=== PATIENT | male | born 1990 ===

== ENCOUNTER 2024-01-24 15:19 | Emergency (ER) | payer OTHER, MEDICAID, SELFPAY ==
[2024-01-24] VITALS (9 sets, daily range): BP systolic 120–172; BP diastolic 76–99; PULSE 65–84; RESP 16–18; TEMP 37.2; O2SAT 93–98; BMI 33.9
--- NOTE | 2024-01-24 15:57 | PC.NURSE ---
Pt reports some food, like chicken, or a bone got stuck 2 nights ago. Bilateral LS throughout all anterior sanders are clear. Pt denies difficultly breathing or SOB. He reports pain only when swallowing in his mid chest that radiates to his back. He is able to swallow his own secretions and maintain his own airway.
--- NOTE | 2024-01-24 18:03 | DI.RAD.S_ITS ---
PROCEDURE: XR SOFT TISSUE NECK INDICATIONS: Neck pain after swallowing TECHNIQUE: 2 views of the neck were acquired. COMPARISON: None. FINDINGS: Airway: The airway appears patent. Soft tissues: Prevertebral soft tissues are normal in thickness. The epiglottis and aryepiglottic folds appear normal. No soft tissue gas. Bones: No suspicious bony lesions. Visualized cervical spine is normally aligned. IMPRESSION: No acute abnormality. Dictated by: Jason Bingham M.D. on 01/24/2024 at 18:52 Approved by: Jason Bingham M.D. on 01/24/2024 at 18:52
--- NOTE | 2024-01-24 18:03 | DI.RAD.S_ITS ---
PROCEDURE: XR CHEST 1V INDICATIONS: Chest pain after swallowing TECHNIQUE: One view of the chest was acquired. COMPARISON: None. FINDINGS: Surgical changes and devices: None. Lungs and pleura: Lungs are clear. No pleural effusions or pneumothorax. Mediastinum: Mediastinal contours appear normal. Heart size is normal. Bones and chest wall: No suspicious bony lesions. Overlying soft tissues appear unremarkable. IMPRESSION: No acute cardiopulmonary abnormality is seen. Dictated by: Jason Bingham M.D. on 01/24/2024 at 18:52 Approved by: Jason Bingham M.D. on 01/24/2024 at 18:52
[2024-01-24] MEDS: MAG HYDROX/ALUMINUM/SIMETH SUS 20 ML, LIDOCAINE VISCOUS 2% 15 ML PO (18:09)
--- NOTE | 2024-01-24 19:01 | ED.SKABFB ---
HPI - Skin/Abscess/Foreign Bdy General Chief complaint: Skin/Abscess/Foreign Body Stated complaint: WIC; Diff Swallowing, Something in my chest Time Seen by Provider: 01/24/24 17:57 Source: patient Mode of arrival: Ambulatory Limitations: no limitations History of Present Illness HPI narrative: Patient is a 33-year-old otherwise healthy male who is here for evaluation of what he states his difficulty swallowing and potentially something stuck in his chest. He was eating a sandwich and some chips when he felt like something got stuck in his throat. States that it is painful when he swallows. No problems breathing. He was never had anything like this happened in the past. He now states the pain is now further down in his chest. No vomiting. No history of reflux disease. Related Data Allergies Allergy/AdvReac Type Severity Reaction Status Date / Time No Known Drug Allergies Allergy Verified 01/24/24 15:30 Review of Systems Review of Systems Narrative: See HPI Patient History Social History Smoking Status: Current every day smoker Smoking Status: Current every day smoker tobacco type: cigarettes alcohol intake frequency: a few times a month Alcohol type: beer and hard liquor Substance Use Type: marijuana Exam Initial Vital Signs Initial Vital Signs: Vital Signs Temperature 98.9 F 01/24/24 15:22 Pulse Rate 79 01/24/24 15:22 Respiratory Rate 16 01/24/24 15:22 Blood Pressure 137/86 01/24/24 15:22 Pulse Oximetry 98 01/24/24 15:22 Oxygen Delivery Method Room Air 01/24/24 15:22 [place] Head: normal to inspection and normocephalic Resp Effort & Inspection: normal respiratory effort Auscultation: clear to auscultation bilaterally Cardio Rate: regular rate Skin General: no rashes or lesions noted Neuro General: patient alert, patient awake, patient oriented x3 and moves all extremities Course Orders Ordered: ED Orders 01/24/24 18:03 XR chest 1V Stat XR soft tissue neck Stat Discontinued Medications Al Hydrox/Mg Hydrox/Simethicone 20 ml/ Lidocaine HCl 15 ml 0 ml PO NOW ONE Stop: 01/24/24 18:04 Last Admin: 01/24/24 18:09 Dose: 35 ml Documented By: SB Vital Signs Vital signs: Vital Signs - 8 hr 01/24/24 16:00 01/24/24 16:01 01/24/24 16:01 Pulse Rate 80 84 Respiratory Rate Blood Pressure 172/99 H Pulse Oximetry 93 93 Oxygen Delivery Method 01/24/24 16:30 01/24/24 16:30 01/24/24 17:00 Pulse Rate 72 72 Respiratory Rate Blood Pressure 124/76 Pulse Oximetry 93 95 Oxygen Delivery Method Room Air 01/24/24 17:00 01/24/24 17:30 01/24/24 17:30 Pulse Rate 69 Respiratory Rate Blood Pressure 127/89 130/79 Pulse Oximetry 96 Oxygen Delivery Method 01/24/24 18:00 01/24/24 18:00 01/24/24 19:48 Pulse Rate 65 76 Respiratory Rate 18 Blood Pressure 120/81 128/81 Pulse Oximetry 94 96 Oxygen Delivery Method Room Air Room Air MDM - Skin/Abscess/Foreign Bdy Imaging Data Chest x-ray: Radiologist's Impression: PROCEDURE: XR CHEST 1V INDICATIONS: Chest pain after swallowing TECHNIQUE: One view of the chest was acquired. COMPARISON: None. FINDINGS: Surgical changes and devices: None. Lungs and pleura: Lungs are clear. No pleural effusions or pneumothorax. Mediastinum: Mediastinal contours appear normal. Heart size is normal. Bones and chest wall: No suspicious bony lesions. Overlying soft tissues appear unremarkable. IMPRESSION: No acute cardiopulmonary abnormality is seen. Soft tissue neck: Radiologist's Impression: PROCEDURE: XR SOFT TISSUE NECK INDICATIONS: Neck pain after swallowing TECHNIQUE: 2 views of the neck were acquired. COMPARISON: None. FINDINGS: Airway: The airway appears patent. Soft tissues: Prevertebral soft tissues are normal in thickness. The epiglottis and aryepiglottic folds appear normal. No soft tissue gas. Bones: No suspicious bony lesions. Visualized cervical spine is normally aligned. IMPRESSION: No acute abnormality. [facility] Narrative Medical decision making narrative: After GI cocktail he reports improvement of symptoms. He was able to swallow. No problems breathing. X-rays show no foreign bodies. We discussed the possibility of an esophageal food impaction however he was tolerating his secretions and liquids. We also discussed the possibility that there is an abrasion because he was eating chips of the time as well. He was no tolerating oral intake so plan will be to discharge home with instructions to take liquid antacids to [facility] the esophagus. He was given return precautions and follow-up instructions. He expressed understanding and agreement. Discharge Plan Departure Patient Disposition: Home Clinical Impression: Odynophagia Activity Restrictions/Additional Instructions: I do recommend that you purchase [id number] liquid antacid such as Mylanta or Maalox. Recommend that you use this for the next 24-48 hours before meals. After that you can use it as needed. Return to the emergency department for new symptoms. Referrals: Miscellaneous,Doctor, MD [Primary Care Provider] - Stand Alone Forms: Patient Portal/API
== END 2024-01-24 19:47 | disposition home or self-care (01) ==
PROVIDERS: Emergency Provider Emergency Medicine
DX: R13.10 Dysphagia, unspecified (principal); R07.9 Chest pain, unspecified; M54.2 Cervicalgia
CPT/HCPCS: 36415; 70360; 71045; 99283; 99284